=== PATIENT | female | born 2000 | race Caucasian/White ===

== ENCOUNTER 2021-05-12 21:37 | Emergency (ER) | payer BC ==
[~2021-05-12] VITALS: Ht 172.7 cm; Wt 72.7 kg
[2021-05-12 22:30] VITALS: BP 127/64; PULSE 62; TEMP 97
== END 2021-05-12 22:34 | disposition home or self-care (01) ==
LOC: COL.ER 21:37
DX: S93.401A Sprain of unspecified ligament of right ankle, initial encounter (principal); X50.1XXA Overexertion from prolonged static or awkward postures, initial encounter